=== PATIENT | male | born 1940 | race Caucasian/White ===

== ENCOUNTER 2022-07-14 23:12 | Inpatient (IN) | payer MEDICARE ==
[~2022-07-14] VITALS: Ht 162.6 cm; Wt 100.7 kg
[2022-07-14] MEDS ORDERED: GLUCAGON FOR INJ 1 MG VIAL IV STA (23:53)
[2022-07-14] MEDS ORDERED: SODIUM CHLORIDE 0.9% 1000ML 1,000 ML IV STA (23:54)
[2022-07-15] VITALS (60 sets, daily range): BP systolic 90–130; BP diastolic 40–83
[2022-07-15 00:05] LABS: BASOPHILS % 0.9 % (0.0-1.0); EOSINOPHILS # (AUTO) 0.2 (0.0-0.4); EOSINOPHILS % 3.8 % (0.0-6.0); HEMATOCRIT 34.6 % (38.2-49.6); HEMOGLOBIN 11.2 g/dL (14.0-18.0); LYMPHOCYTES # (AUTO) 1.1 (1.0-3.2); LYMPHOCYTES % 25.2 % (18.0-39.1); MEAN CORPUSCULAR HEMOGLOBIN 32.3 pg (28-32); MEAN CORPUSCULAR HGB CONC 32.4 g/dL (31-35); MEAN CORPUSCULAR VOLUME 99.7 fL (81-99); MONOCYTES # (AUTO) 0.8 (0.2-0.8); MONOCYTES % 17.9 % (4.4-11.3); NEUTROPHILS # (AUTO) 2.4 (2.1-6.9); PLATELET COUNT 104 x10e3/uL (140-360); RED BLOOD COUNT 3.47 x10e6/uL (4.3-5.7)
[2022-07-15] MEDS ORDERED: CALCIUM GLUC 1 G/50 ML NACL 50 ML IV ONE (00:19)
[2022-07-15 00:22] LABS: ALANINE AMINOTRANSFERASE 12 IU/L (0-55); ALBUMIN 3.2 g/dL (3.5-5.0); ALBUMIN/GLOBULIN RATIO 1.1 (0.8-2.0); ALKALINE PHOSPHATASE 57 IU/L (40-150); ANION GAP 13.9 mmol/L (8-16); BLOOD UREA NITROGEN 24 mg/dL (7-26); BUN/CREATININE RATIO 19 (6-25); CALCIUM 8.5 mg/dL (8.4-10.2); CARBON DIOXIDE 30 mmol/L (22-29); CHLORIDE 101 mmol/L (98-107); CREATINE KINASE 47 IU/L (30-200); CREATININE, SERUM 1.28 mg/dL (0.72-1.25); GLUCOSE 114 mg/dL (74-118); POTASSIUM 3.9 mmol/L (3.5-5.1); SODIUM 141 mmol/L (136-145)
[2022-07-15 00:32] LABS: CREATINE KINASE MB < 1.00 ng/mL (0-4.3)
[2022-07-15 08:20] LABS: CREATINE KINASE MB 1.3 ng/mL (0-5.0)
[2022-07-15 08:37] LABS: MAGNESIUM 1.9 MG/DL (1.3-2.1)
[2022-07-15 08:58] LABS: THYROID STIMULATING HORMONE 1.032 uIU/mL (0.350-4.940)
[2022-07-15] MEDS: LOSARTAN POTASSIUM 25 MG TAB PO SCH (09:00)
[2022-07-15] MEDS: PRIMIDONE 50 MG TAB PO SCH ×2 (09:29→16:36)
[2022-07-15] MEDS: DABIGATRAN ETEXILATE 75 MG CAP PO SCH ×2 (09:29→16:36)
[2022-07-15] MEDS ORDERED: CARVEDILOL3.125 MG PO (11:08)
[2022-07-15] MEDS ORDERED: FUROSEMIDE40 MG PO (11:08)
[2022-07-15] MEDS ORDERED: ARICEPT10 MG PO (11:08)
[2022-07-15] MEDS ORDERED: LOSARTAN POTASS25 MG PO (11:08)
[2022-07-15] MEDS ORDERED: BUMETANIDE0.5 MG PO (11:08)
[2022-07-15] MEDS ORDERED: MYSOLINE50 MG (11:08)
[2022-07-15] MEDS ORDERED: IRON159 MG PO (11:08)
[2022-07-15] MEDS ORDERED: COQ-10100 MG PO (11:08)
[2022-07-15] MEDS ORDERED: POTASSIUM99 M1 (11:08)
[2022-07-15] MEDS ORDERED: PRADAXA75 MG (11:08)
[2022-07-15] MEDS ORDERED: FLOMAX0.4 MG PO (11:08)
[2022-07-15] MEDS ORDERED: PRAVASTATIN SOD40 MG (11:08)
[2022-07-15 16:54] LABS: CREATINE KINASE MB 1.2 ng/mL (0-5.0)
[2022-07-15] MEDS ORDERED: PRAVASTATIN 20 MG TAB PO SCH (21:00)
[2022-07-15] MEDS ORDERED: TAMSULOSIN HCL 0.4 MG CAP PO SCH (21:00)
[2022-07-15] MEDS ORDERED: DONEPEZIL HCL 5 MG TAB PO SCH (21:00)
[2022-07-16] VITALS (21 sets, daily range): BP systolic 108–149; BP diastolic 42–91
[2022-07-16 05:54] LABS: BASOPHILS % 0.7 % (0.0-1.0); EOSINOPHILS # (AUTO) 0.2 (0.0-0.4); EOSINOPHILS % 2.7 % (0.0-6.0); HEMATOCRIT 37.3 % (38.2-49.6); HEMOGLOBIN 11.9 g/dL (14.0-18.0); LYMPHOCYTES # (AUTO) 1.2 (1.0-3.2); LYMPHOCYTES % 21.1 % (18.0-39.1); MEAN CORPUSCULAR HEMOGLOBIN 31.4 pg (28-32); MEAN CORPUSCULAR HGB CONC 31.9 g/dL (31-35); MEAN CORPUSCULAR VOLUME 98.4 fL (81-99); MONOCYTES # (AUTO) 0.7 (0.2-0.8); MONOCYTES % 13.4 % (4.4-11.3); NEUTROPHILS # (AUTO) 3.4 (2.1-6.9); NEUTROPHILS % 61.9 % (38.7-80.0); PLATELET COUNT 108 x10e3/uL (140-360); RED BLOOD COUNT 3.79 x10e6/uL (4.3-5.7); RED CELL DISTRIBUTION WIDTH 15.1 % (11.7-14.4)
[2022-07-16 06:24] LABS: ALBUMIN 3.1 g/dL (3.5-5.0); ALBUMIN/GLOBULIN RATIO 1.1 (0.8-2.0); CALCIUM 8.3 mg/dL (8.4-10.2); CREATININE, SERUM 1.05 mg/dL (0.72-1.25)
[2022-07-16 06:29] LABS: CREATINE KINASE MB 1.2 ng/mL (0-5.0)
[2022-07-16] MEDS: LOSARTAN POTASSIUM 25 MG TAB PO SCH (09:00)
[2022-07-16] MEDS: DABIGATRAN ETEXILATE 75 MG CAP PO SCH ×2 (09:29→17:31)
[2022-07-16] MEDS: PRIMIDONE 50 MG TAB PO SCH ×2 (09:29→17:31)
[2022-07-16] MEDS ORDERED: LOSARTAN POTASSIUM 25 MG TAB PO ONE (10:30)
[2022-07-16] MEDS ORDERED: ROLLING WALKER (16:16)
[2022-07-17] MEDS ORDERED: LOSARTAN POTASSIUM 25 MG TAB PO SCH (09:00)
== END 2022-07-16 17:30 | disposition home or self-care (01) | DRG 918 ==
LOC: ER 23:23 → ERHOLD 07-15 04:51 → OBSVTOIN 07-15 05:12 → ICU 07-15 07:24
PROVIDERS: ADMIT Internal Medicine; ATTEND Internal Medicine
DX: T44.8X1A Poisoning by centrally-acting and adrenergic-neuron-blocking agents, accidental (unintentional), initial encounter (principal); I48.20 Chronic atrial fibrillation, unspecified; I11.0 Hypertensive heart disease with heart failure; I50.9 Heart failure, unspecified; G30.9 Alzheimer's disease, unspecified; F02.80 Dementia in other diseases classified elsewhere, unspecified severity, without behavioral disturbance, psychotic disturbance, mood disturbance, and anxiety; T46.5X1A Poisoning by other antihypertensive drugs, accidental (unintentional), initial encounter; R00.1 Bradycardia, unspecified; E78.5 Hyperlipidemia, unspecified; N40.0 Benign prostatic hyperplasia without lower urinary tract symptoms; Z79.01 Long term (current) use of anticoagulants; Z20.822 Contact with and (suspected) exposure to COVID-19
CPT/HCPCS: 0223U; 36415; 71045; 80053; 82550; 82553; 83735; 83880; 84443; 84484; 85025; 93005; 93306; 99251; 99284; J0610; J1610; J7030